=== PATIENT | female | born 2000 | race Hispanic/Latino ===

== ENCOUNTER 2022-12-04 12:26 | Day surgery (SDC) | payer BC ==
[2022-12-04] MEDS ORDERED: hydrALAZINE 20 MG/ML VIAL SLOW IVP PRN (13:59)
== END 2022-12-04 16:20 | disposition home health service (06) ==
LOC: CSHLD/OP 12:26
PROVIDERS: ATTEND Obstetrics & Gynecology
DX: O26.853 Spotting complicating pregnancy, third trimester (principal); O09.32 Supervision of pregnancy with insufficient antenatal care, second trimester; O99.013 Anemia complicating pregnancy, third trimester; D64.9 Anemia, unspecified; O23.593 Infection of other part of genital tract in pregnancy, third trimester; B96.89 Other specified bacterial agents as the cause of diseases classified elsewhere; B37.31 Acute candidiasis of vulva and vagina; Z3A.29 29 weeks gestation of pregnancy
CPT/HCPCS: 76856; 87480; 87510; 87660; 99283

== ENCOUNTER → 2022-12-06 | Day surgery (SDC) | payer BC, OTHER ==
[~2022-12-06] MED LIST: Acetaminophen 500 MG TAB ONE; Acetaminophen 500 MG TAB PO SCH; Iron Sucrose Complex 500 MG in Sodium Chloride 0.9% 250 ML 250 ML IVPB SCH
== END ==
LOC: CSHSDC/OP 13:10
PROVIDERS: ATTEND Family Medicine
DX: O99.019 Anemia complicating pregnancy, unspecified trimester (principal); D64.9 Anemia, unspecified
CPT/HCPCS: J1756; J7050

== ENCOUNTER 2023-02-01 20:13 | Emergency (ER) | payer BC, MEDICAID, OTHER ==
[2023-02-01 22:21] LABS: Clarity Clear (Clear); Leukocyte 500 (Negative); Specific Gravity, Urine 1.025 (1.005-1.030)
[2023-02-01 22:22] LABS: Bilirubin Neg (Negative); Blood, Urine Negative (Negative); Glucose, Urine (Dipstick) Normal (Negative); Ketone, Urine Negative (Negative); Nitrite Negative (Negative); Protein, Urine (Dipstick) Negative (Neg-Trace); Urobilinogen Normal mg/dL (Less than 2)
[2023-02-01 22:32] LABS: Bacteria/HPF 2+ HPF (None Seen); RBC/HPF None Seen HPF (0-3); Squamous Epithelial 0-3 HPF (0-3); WBC/HPF 21-50 HPF (0-3)
== END 2023-02-01 22:47 | disposition home or self-care (01) ==
LOC: CSHERS 20:13
DX: O12.03 Gestational edema, third trimester (principal); O23.43 Unspecified infection of urinary tract in pregnancy, third trimester; N39.0 Urinary tract infection, site not specified; Z3A.37 37 weeks gestation of pregnancy
CPT/HCPCS: 81003; 81015; 87086

== ENCOUNTER 2023-02-14 15:53 | Inpatient (IN) | payer OTHER ==
[2023-02-14 23:30] VITALS: BMI 29.9
[2023-02-14] MEDS ORDERED: Penicillin G Potassium 5 MILL.UNITS in Sodium Chloride 0.9% 100 ML IVPB SCH (23:45)
[2023-02-14] MEDS ORDERED: NS w/ Oxytocin 30 units 500 ML IV SCH ×2 (23:45)
[2023-02-14] MEDS ORDERED: hydrALAZINE 20 MG/ML VIAL SLOW IVP PRN (23:47)
[2023-02-14] MEDS ORDERED: Promethazine HCl 25 MG/ML VIAL IM PRN (23:47)
[2023-02-14] MEDS ORDERED: Lidocaine 1% (PF) 30 ML VIAL SC PRN (23:47)
[2023-02-14] MEDS ORDERED: Ondansetron PF 4 MG/2 ML Vial IVP PRN (23:47)
[2023-02-14] MEDS ORDERED: Carboprost 250 MCG/ML AMP IM PRN (23:48)
[2023-02-14] MEDS ORDERED: Diphenoxylate HCl/Atropine Tablet PO PRN (23:48)
[2023-02-14] MEDS ORDERED: Methylergonovine 0.2 MG/ML VIAL IM PRN (23:48)
[2023-02-14] MEDS ORDERED: Acetaminophen 500 MG TAB PO PRN (23:48)
[2023-02-14] MEDS ORDERED: Tranexamic Acid 1,000 MG/10 ML VIAL IVP PRN (23:48)
[2023-02-14] MEDS ORDERED: Misoprostol 200 MCG TAB PR PRN (23:48)
[2023-02-14] MEDS: Lactated Ringer's 1,000 ML IV SCH (23:55)
[2023-02-15] MEDS: Misoprostol 100 MCG TAB VAG SCH ×4 (00:30→17:54)
[2023-02-15 01:02] LABS: Hemoglobin 11.1 g/dL (12.0-15.5); Mean Corpuscular HGB CONC 34.5 g/dL (32.0-36.0); Mean Corpuscular Hemoglobin 28.9 pg (27.0-33.0); Mean Corpuscular Volume 83.9 fl (81.6-98.3); Mean Platelet Volume 10.4 fl (7.4-10.4); Platelet Count 192 10x3/uL (150-450); RBC Distribution Width 14.3 % (11.5-14.5); Red Blood Cell (RBC) Count 3.84 10x6/uL (3.90-5.03); White Blood Cell (WBC) Count 8.8 10x3/uL (3.5-10.5)
[2023-02-15 01:15] LABS: HBSAg Index 0.12 S/CO (0-0.99); Hep B Surf Ag - L&D Non-Reactive S/CO (NonReactive)
[2023-02-15 01:16] LABS: Syphilis Antibody Nonreactive (Nonreactive); Syphilis Antibody Index 0.09 S/CO (<1.00 Non-Reactive)
[2023-02-15] MEDS: Penicillin G 2.5 MILL.units 2.5 MILL.UNITS in Premix Bag 1 BAG IVPB SCH ×3 (04:48→17:55)
[2023-02-15] MEDS ORDERED: fentaNYL 50 mcg/mL 1 mL Vial ONE (10:01)
[2023-02-15] MEDS ORDERED: fentaNYL 50 mcg/mL 1 mL Vial SLOW IVP PRN (10:16)
[2023-02-15] MEDS ORDERED: Fentanyl 2 mcg/Bup 0.1% Cadd 100 ML ONE (11:23)
[2023-02-15] MEDS ORDERED: Ondansetron PF 4 MG/2 ML Vial IVP PRN (11:53)
[2023-02-15] MEDS ORDERED: Moisturizing Cream (Eucerin) 113 GM JAR TOP PRN (11:53)
[2023-02-15] MEDS ORDERED: Lactated Ringer's 500 ML IV PRN (11:53)
[2023-02-15] MEDS ORDERED: diphenhydrAMINE 50 MG/ML VIAL IVP PRN (11:53)
[2023-02-15] MEDS ORDERED: Promethazine HCl 25 MG/ML VIAL IM PRN (11:53)
[2023-02-15] MEDS ORDERED: Acetaminophen 325 MG TAB PO PRN (11:53)
[2023-02-15] MEDS ORDERED: Naloxone HCl 0.4 mg/ml Vial IVP PRN ×2 (11:53)
[2023-02-15] MEDS ORDERED: ePHEDrine Sulfate 50 MG/10 ML VIAL SLOW IVP PRN (11:53)
[2023-02-15] MEDS ORDERED: Fentanyl 2 mcg/Bupivacaine 0.1% Cassette 100 ML EPIDURAL SCH (12:00)
[2023-02-15] MEDS ORDERED: Communication Order-Pharmacy FS SCH (12:00)
[2023-02-15] MEDS: Lactated Ringer's 1,000 ML IV SCH ×2 (17:54→17:55)
[2023-02-15] MEDS ORDERED: Preparation H Ointment 28 GM TUBE PR PRN (22:25)
[2023-02-15] MEDS ORDERED: Bisacodyl 10 MG SUPP PR PRN (22:25)
[2023-02-15] MEDS ORDERED: Misoprostol 200 MCG TAB VAG PRN (22:25)
[2023-02-15] MEDS ORDERED: Boostrix 0.5 ML (Tdap) VIAL (>/=7 yrs of age) IM ONE (22:25)
[2023-02-15] MEDS ORDERED: Milk Of Magnesia 30 ML UDCUP PO PRN (22:25)
[2023-02-15] MEDS ORDERED: NS w/ Oxytocin 30 units 500 ML IV SCH (22:25)
[2023-02-15] MEDS ORDERED: hydrALAZINE 20 MG/ML VIAL SLOW IVP PRN (22:25)
[2023-02-15] MEDS ORDERED: Benzocaine-Menthol 82.5 ML CAN TOP PRN (22:25)
[2023-02-15] MEDS ORDERED: Lanolin Ointment 7 GM TUBE TOP PRN (22:25)
[2023-02-15] MEDS ORDERED: Methylergonovine 0.2 MG/ML VIAL IM PRN (22:25)
[2023-02-15] MEDS ORDERED: Docusate 100 MG CAP PO SCH (22:30)
[2023-02-15] MEDS ORDERED: Ibuprofen 800 MG TAB PO SCH (22:45)
[2023-02-16] MEDS: Ibuprofen 800 MG TAB PO SCH ×3 (06:34→22:09)
[2023-02-16 06:57] LABS: #Eosinphils 0.1 10x3/uL (0.0-0.5); #Monocytes 0.9 10x3/uL (0.0-1.1); #Neutrophils 10.5 10x3/uL (1.5-8.4); %Basophils 0.2 % (0.0-2.0); %Eosinophils 0.9 % (0.0-6.0); %Lymphocytes 16.3 % (18.0-47.0); %Monocytes 6.1 % (0.0-10.0); %Neutrophils 75.6 % (40.0-75.0); Hemoglobin 9.4 g/dL (12.0-15.5); Mean Corpuscular HGB CONC 34.2 g/dL (32.0-36.0); Mean Corpuscular Hemoglobin 28.6 pg (27.0-33.0); Mean Corpuscular Volume 83.6 fl (81.6-98.3); Mean Platelet Volume 10.4 fl (7.4-10.4); Platelet Count 179 10x3/uL (150-450); RBC Distribution Width 14.4 % (11.5-14.5); Red Blood Cell (RBC) Count 3.29 10x6/uL (3.90-5.03); White Blood Cell (WBC) Count 13.9 10x3/uL (3.5-10.5)
[2023-02-16] MEDS: Polyethylene Glycol 3350 17 GM Packet PO SCH (08:58)
[2023-02-16] MEDS: Clindamycin 150 MG CAP PO SCH ×2 (08:59→15:32)
[2023-02-16] MEDS: Ferrous Sulfate 325 MG TAB PO SCH ×2 (08:59→18:29)
[2023-02-16] MEDS: Prenatal Vitamin 1 TAB PO SCH (08:59)
[2023-02-16] MEDS: Docusate 100 MG CAP PO SCH ×2 (09:01→22:10)
[2023-02-16] MEDS: Misoprostol 100 MCG TAB VAG SCH (15:40)
[2023-02-16] MEDS: Penicillin G 2.5 MILL.units 2.5 MILL.UNITS in Premix Bag 1 BAG IVPB SCH (15:40)
[2023-02-17] MEDS: Clindamycin 150 MG CAP PO SCH ×2 (00:08→08:47)
[2023-02-17 03:24] LABS: #Eosinphils 0.3 10x3/uL (0.0-0.5); #Monocytes 0.8 10x3/uL (0.0-1.1); #Neutrophils 8.8 10x3/uL (1.5-8.4); %Basophils 0.3 % (0.0-2.0); %Eosinophils 2.2 % (0.0-6.0); %Lymphocytes 22.5 % (18.0-47.0); %Monocytes 6.1 % (0.0-10.0); Hemoglobin 8.4 g/dL (12.0-15.5); Mean Corpuscular HGB CONC 34.3 g/dL (32.0-36.0); Mean Corpuscular Hemoglobin 29.1 pg (27.0-33.0); Mean Corpuscular Volume 84.8 fl (81.6-98.3); Mean Platelet Volume 10.1 fl (7.4-10.4); Platelet Count 179 10x3/uL (150-450); RBC Distribution Width 14.5 % (11.5-14.5); Red Blood Cell (RBC) Count 2.89 10x6/uL (3.90-5.03); White Blood Cell (WBC) Count 12.9 10x3/uL (3.5-10.5)
[2023-02-17] MEDS: Ibuprofen 800 MG TAB PO SCH ×2 (06:02→14:00)
[2023-02-17 08:10] VITALS: BP 111/68; TEMP 98
[2023-02-17] MEDS: Docusate 100 MG CAP PO SCH (08:47)
[2023-02-17] MEDS: Prenatal Vitamin 1 TAB PO SCH (08:47)
[2023-02-17] MEDS: Ferrous Sulfate 325 MG TAB PO SCH (08:47)
[2023-02-17] MEDS: Polyethylene Glycol 3350 17 GM Packet PO SCH (08:54)
[2023-02-17] MEDS ORDERED: FOLIC ACID PO SCH (09:00)
[2023-02-17] MEDS ORDERED: IRON PO SCH (09:00)
[2023-02-17] MEDS ORDERED: [UNRECOGNIZED DRUG - OTHER] PO SCH (09:00)
[2023-02-17] MEDS ORDERED: PNV CALCIUM PO SCH (09:00)
[2023-02-17] MEDS ORDERED: Polyethylene Glycol 3350 17 GM Packet PO SCH (21:00)
[2023-04-08] MEDS ORDERED: Bupivacaine/Epinephrine 0.25% 30 ML VIAL ONE (16:30)
== END 2023-02-17 16:50 | disposition home or self-care (01) | DRG 768 ==
LOC: CSHLD 23:05 → CSHPP 02-15 21:00
PROVIDERS: ADMIT Family Medicine; ATTEND Family Medicine
PROC: 10E0XZZ Delivery of Products of Conception, External Approach (ICD-10-PCS; principal; 2023-02-15)
PROC: 0DQR0ZZ Repair Anal Sphincter, Open Approach (ICD-10-PCS; 2023-02-15)
PROC: 3E0P7VZ Introduction of Hormone into Female Reproductive, Via Natural or Artificial Opening (ICD-10-PCS; 2023-02-15)
PROC: 0U7C7ZZ Dilation of Cervix, Via Natural or Artificial Opening (ICD-10-PCS; 2023-02-15)
PROC: 0UQMXZZ Repair Vulva, External Approach (ICD-10-PCS; 2023-02-15)
DX: O41.03X0 Oligohydramnios, third trimester, not applicable or unspecified (principal); Z37.0 Single live birth; O70.21 Third degree perineal laceration during delivery, IIIa; Z3A.39 39 weeks gestation of pregnancy; O99.824 Streptococcus B carrier state complicating childbirth; O99.02 Anemia complicating childbirth; D50.9 Iron deficiency anemia, unspecified; O71.82 Other specified trauma to perineum and vulva
CPT/HCPCS: 36415; 85025; 85027; 86780; 86850; 86900; 86901; 87340; J2540; J2590; J3010; J3490; J7120